=== PATIENT | female | born 1990 | race African-American/Black ===

== ENCOUNTER 2017-07-29 11:51 | Emergency (ER) | payer MEDICAID ==
[~2017-07-29] VITALS: Ht 152.4 cm; Wt 60.0 kg
[2017-07-29] MEDS ORDERED: SODIUM CHLORIDE 0.9% 1,000 ML IV ONE (14:49)
[2017-07-29] MEDS ORDERED: FAMOTIDINE 20MG/2ML VIAL IV STA (14:49)
[2017-07-29] MEDS ORDERED: ONDANSETRON HCL 4MG/2ML VIAL IV STA (14:49)
[2017-07-29 15:27] LABS: BASOPHILS % 0.3 % (0.0-2.0); HEMATOCRIT. 39.6 % (36.0-48.0); HEMOGLOBIN. 13.5 g/dL (12.0-16.0); LYMPHOCYTES % 9.2 % (20.0-50.0); MEAN CORPUSCULAR VOLUME 87.9 fL (81.0-99.0); MEAN PLATELET VOLUME 8.6 fl (7.4-10.4); MONOCYTES % 3.4 % (2.0-8.0); NEUTROPHILS % 87.1 % (40.0-76.0); PLATELET 248 x1000/uL (130-400); RED CELL DISTRIBUTION WIDTH 14.7 % (11.6-14.6)
[2017-07-29 15:30] LABS: CHLORIDE 103 mEq/L (98-107)
[2017-07-29 15:32] LABS: CLARITY URINE CLEAR (CLEAR); COLOR URINE YELLOW (YELLOW); GLUCOSE URINE NEGATIVE (NEGATIVE); KETONES URINE 2+ (NEGATIVE); LEUKOCYTE ESTERASE URINE NEGATIVE (NEGATIVE); NITRITE URINE NEGATIVE (NEGATIVE); OCCULT BLOOD URINE NEGATIVE (NEGATIVE); PH URINE >=9.0 (4.5-8.0); PROTEIN URINE 1+ (NEGATIVE); SPECIFIC GRAVITY URINE 1.016 (1.005-1.030); UROBILINOGEN URINE 0.2 E.U./dL (0.2-1.0)
[2017-07-29 15:38] LABS: CARBON DIOXIDE 25 mEq/L (21-32)
[2017-07-29] MEDS ORDERED: MAGNESIUM/ALUMINUM HYDROXIDE/SIMETHICONE 30ML UDC PO STA (16:21)
[2017-07-29] MEDS ORDERED: ACETAMINOPHEN 325MG TABLET PO STA (16:21)
[2017-07-29 17:23] VITALS: BP 155/91
== END 2017-07-29 17:38 | disposition home or self-care (01) ==
LOC: ER 11:51
DX: K29.70 Gastritis, unspecified, without bleeding (principal); R11.2 Nausea with vomiting, unspecified; J45.909 Unspecified asthma, uncomplicated
CPT/HCPCS: 36415; 80053; 81001; 81025; 83690; 85025; 96361; 96374; 96375; 99285; J2405; J3490; Z7610; J7030